=== PATIENT | female | born 2000 | race Caucasian/White ===

== ENCOUNTER 2019-04-09 00:45 | Emergency (ER) | payer MEDICAID, OTHER ==
[~2019-04-09] VITALS: Ht 165.1 cm; Wt 43.5 kg
--- NOTE | 2019-04-09 01:00 | NUR ---
Patient is AOx4, speaking in complete sentences, speech is clear. Able to follow /comprehend directions. Gait is stable. No cardiovascular distress noted. Rate/rhythm regular. No CP. No respiratory distress noted. Respirations even , unlabored, symmetrical chest rise. No adventitious sounds noted. Chief complaint: Patient comes in FROM HOME with c/o EPIGASTRIC PAIN AND DIARRHEA X3HRS DENIES N/V. Bowel sounds present and normoactive in all four quadrants. -ABD distention. Denies Fever/Chills. No recent travel. No pertinent medical history/NKDA. - ETOH/ -recreational drug use/nonsmoker. Continent of bowel and bladder function. SAFETY Patient in bed, bed in lowest position. Siderails up x 2. Call light within reach. Will continue to monitor accordingly MD AT BEDSIDE FOR HX AND PHYSICAL
--- NOTE | 2019-04-09 01:15 | NUR ---
PT ABLE TO PROVIDE SOLID FORMED STOOLS UPON URINE REQUEST. UNABLE TO PROVIDE URINE SAMPLE AT THIS TIME. PT NAD, ABLE TO SMILE, ENDORSED BY RELATIVE PT HAS SOME LANGUAGE BARRIER BUT ABLE TO SPEAK COMPLETE SENTENCE: "CAN I HAVE SOME WATER" RELATIVE ABLE TO PROVIDE TRANSLATION OF SIMPLE COMMANDS
[2019-04-09] MEDS ORDERED: MAG HYDROX/AL HYDROX/SIMETH 30 ML LIQUID UDC ONE ×2 (01:27)
[2019-04-09] MEDS ORDERED: DICYCLOMINE HCL LIQ 10 MG/5 ML UDC ONE ×2 (01:28)
[2019-04-09] MEDS ORDERED: DICYCLOMINE HCL LIQ 10 MG/5 ML UDC PO ONE (01:30)
[2019-04-09] MEDS ORDERED: MAG HYDROX/AL HYDROX/SIMETH 30 ML LIQUID UDC PO ONE (01:30)
--- NOTE | 2019-04-09 01:37 | NUR ---
ABLE TO TOLERATE PO MEDS DENIES N/V
--- NOTE | 2019-04-09 01:52 | NUR ---
Patient discharged to home in stable conditon. Written and verbal after care instructions given. Patient verbalizes understanding of instructions. AMBULATORY WITH STABLE GAIT. ALL BELONGINGS WITH PT
[2019-04-09 01:55] VITALS: BP 110/75
== END 2019-04-09 01:56 | disposition home or self-care (01) ==
LOC: ER 00:50
DX: K21.9 Gastro-esophageal reflux disease without esophagitis (principal); R19.7 Diarrhea, unspecified
CPT/HCPCS: A4663